=== PATIENT | female | born 1995 | race African-American/Black ===

== ENCOUNTER 2019-07-05 03:26 | Emergency (ER) | payer SELFPAY ==
[2019-07-05] MEDS ORDERED: SODIUM CHLORIDE 1,000 ML IV STA (03:48)
[2019-07-05] MEDS ORDERED: ACETAMINOPHEN 325 MG TABLET (FP) PO ONE (03:48)
[2019-07-05 03:54] VITALS: TEMP 97.9; BMI 20.3
--- NOTE | 2019-07-05 03:54 | PDOC ---
History of Present Illness - General Chief Complaint: Vaginal Bleeding Stated Complaint: vaginal bleeding Time Seen by Provider: 07/05/19 03:48 History Source: Patient Exam Limitations: No Limitations - History of Present Illness Initial Comments: Юлия Ferrera is a healthy 23 yo F who denies having any pmh who presents to the [facility] er after she experienced a few episodes of vaginal bleeding this week. She states she took a home test last week which was poisitive, did not goto a doctor, then experienced multiple bleeding episodes and assumed she miscarried. She States she took another home test recently which was negative so she does not think she is now . She states the reason she is here is because her mother told her positive tests and bleeding could be really bad and she should come to the ER to be evaluated. She states this would be her 3rd and the first two ended with elective abortions. She states a few days ago she passed multiple clots of blood vaginally. She has no pain or complaints here today, she only presents for re- assurance that everything is okay. She denies having any abdominal pain, back pain, nausea, vomiting, or fevers. Denies chest pain, SOB, or difficulty breathing. Denies headache, blurry vision or neck pain. LMP: Thanksgiving PCP: None OB: None PSH: None reported Allergies: NKA, NKDA Social Hx: Smokes marijuana, occasional cigarettes, recreational alcohol. Past History - Past Medical History Allergies/Adverse Reactions: Allergies Allergy/AdvReac Type Severity Reaction Status Date / Time No Known Allergies Allergy Verified 07/05/19 04:14 - Psycho Social/Smoking Cessation Hx Smoking History: Never smoked Have you smoked in the past 12 months: No Information on smoking cessation initiated: No Hx Alcohol Use: No Drug/Substance Use Hx: No Review of Systems - Review of Systems Able to Perform ROS?: Yes Comments:: CONSTITUTIONAL: Absent: fever, no chills, no fatigue EYES: Absent: visual changes ENT: Absent: ear pain, no sore throat CARDIOVASCULAR: Absent: chest pain, no palpitations RESPIRATORY: Absent: cough, no SOB GI: Absent: abdominal pain, no nausea, no vomiting, no constipation, no diarrhea GENITOURINARY: Present: vagival bleeding Absent: dysuria, no frequency, no hematuria MUSKULOSKELETAL: Absent: back pain, no arthralgia, no myalgia SKIN: Absent: rash NEURO: Absent: headache *Physical Exam - Vital Signs Last Vital Signs Temp Pulse Resp BP Pulse Ox 97.9 F 84 15 135/78 100 07/05/19 03:50 07/05/19 03:50 07/05/19 03:50 07/05/19 03:50 07/05/19 03:50 - Physical Exam GENERAL: Well-appearing, well-nourished. No apparent distress. HEENT: Normocephalic, atraumatic. PERRL, EOM intact. CARDIOVASCULAR: Normal S1, S2. Regular rate and rhythm. PULMONARY: No evidence of respiratory distress. Lungs clear to auscultation bilaterally. No wheezing, rales or rhonchi. ABDOMEN: Soft, non-distended, non-tender. EXTREMITIES: Normal ROM in all four extremities. No gross deformities. SKIN: Warm, dry. No rash NEUROLOGICAL: No focal neurological deficits. ED Treatment Course - LABORATORY CBC & Chemistry Diagram: 07/05/19 04:00 07/05/19 04:00 Medical Decision Making - Medical Decision Making Юлия Ferrera is a healthy 23 yo F who denies having any pmh who presents to the [facility] er after she experienced a few episodes of vaginal bleeding this week. She states she took a home test last week which was poisitive, did not goto a doctor, then experienced multiple bleeding episodes and assumed she miscarried. She States she took another home test recently which was negative so she does not think she is now . She states the reason she is here is because her mother told her positive tests and bleeding could be really bad and she should come to the ER to be evaluated. She states this would be her 3rd and the first two ended with elective abortions. She states a few days ago she passed multiple clots of blood vaginally. She has no pain or complaints here today, she only presents for re- assurance that everything is okay. Vital Signs Temp Pulse Resp BP Pulse Ox 97.9 F 84 15 135/78 100 07/05/19 03:50 07/05/19 03:50 07/05/19 03:50 07/05/19 03:50 07/05/19 03:50 DDx IBNLT: - IUP vs Ectopic, electrolyte/metabolic disturbance, anemia , RH+ Plan: Labs, Urine, supportive care, re-assess. Labs: Unremarkable. O positive - Ab negative. Urine: HCG negative Re-assessment: Patient pain free Disposition: Home with OB fu - Return precautions Discharge - Discharge Information Problems reviewed: Yes Clinical Impression/Diagnosis: Vaginal bleeding Condition: Improved Disposition: HOME - Admission No - Follow up/Referral Referrals: Alex Coulter MD [Staff Physician] - - Patient Discharge Instructions Patient Printed Discharge Instructions: DI for Vaginal Bleeding, Teens and Oral Sex: It's Not Safe, Facts About Sexually Transmitted Infections, How to Detect and Treat STDs, Chlamydia: The Silent STD, An STD Now Can Result in Infertility Later Additional Instructions: Please schedule a follow up appointment with your primary care doctor in the next 3 to 5 days Please schedule a follow up appointment with your OB in the next 5 days Come back to the ER immediately with any new or worsening concerns including abdominal pain, vaginal bleeding, or other concerns. Thank you for coming to the [facility] ER. We hope you feel better soon! Print Language: TURKMEN - Post Discharge Activity
[2019-07-05] MEDS ORDERED: ONDANSETRON 4 MG/2 ML VIAL IVPUSH ONE (04:11)
[2019-07-05 04:13] LABS: EPI CELLS 3.5 /HPF (0-5/HPF); HYALINE CASTS 3 /lpf (0-8); URINE APPEARANCE CLEAR; URINE BACTERIA 65.9 /hpf (NEGATIVE); URINE BILIRUBIN NEGATIVE (NEGATIVE); URINE COLOR YELLOW; URINE GLUCOSE (UA) NEGATIVE (NEGATIVE); URINE KETONE TRACE (NEGATIVE); URINE LEUK ESTERASE TRACE (NEGATIVE); URINE NITRITE NEGATIVE (NEGATIVE); URINE PROTEIN NEGATIVE (NEGATIVE); URINE RBC 1 /hpf (0-4); URINE UROBILINOGEN 0.2 mg/dL (0.2-1.0); URINE WBC 7 /hpf (0-5)
[2019-07-05 04:22] LABS: BASO % 0.7 % (0-2.0); EOS % 5.3 % (0-4.5); HEMATOCRIT 43.6 % (32.4-45.2); HEMOGLOBIN 14.8 GM/dL (10.7-15.3); LYMPH % 45.4 % (8-40); MCH 30.2 pg (25.7-33.7); MCHC 33.9 g/dl (32.0-36.0); MEAN CELL VOLUME 89.2 fl (80-96); MEAN PLT VOLUME 9.3 fl (7.5-11.1); MONO % 5.9 % (3.8-10.2); NEUT % 42.7 % (42.8-82.8); PLATELET COUNT 289 K/MM3 (134-434); RBC 4.88 M/mm3 (3.60-5.2); RDW 12.6 % (11.6-15.6); WHITE BLOOD COUNT 9.1 K/mm3 (4.0-10.0)
[2019-07-05 05:01] LABS: ALK PHOS 74 U/L (45-117); ANION GAP 7 MMOL/L (8-16); BILIRUBIN,TOTAL 0.5 mg/dL (0.2-1); BLOOD UREA NITROGEN 10.8 mg/dL (7-18); CHLORIDE 104 mmol/L (98-107); CO2 26 mmol/L (21-32); CREATININE 0.8 mg/dL (0.55-1.3); GLUCOSE,RANDOM 100 mg/dL (74-106); POTASSIUM 5.3 mmol/L (3.5-5.1); SGOT/AST 43 U/L (15-37); SGPT/ALT 28 U/L (13-61); SODIUM 138 mmol/L (136-145); TOT PROT 7.9 g/dl (6.4-8.2)
--- NOTE | 2019-07-05 05:20 | PDOC ---
Attending Attestation - Resident Resident Name: Ed Carballo - ED Attending Attestation I have performed the following: I have examined & evaluated the patient, The case was reviewed & discussed with the resident, I agree w/resident's findings & plan, Exceptions are as noted - HPI HPI: 07/18/19 20:04 See resident HPI - Physicial Exam PE: 07/18/19 20:04 Agree with documented exam - Medical Decision Making 07/18/19 20:04 Vaginal bleeding with report of recent + test, states latest home test was negative after bleeding started. Reports clots Eval for IUP, ectopic, SAB f/u labs, urine HCG neg, Rh+ dc home
[2019-07-05 05:41] VITALS: BP 122/76; PULSE 78
== END 2019-07-05 05:41 | disposition home or self-care (01) ==
LOC: JER 03:26
PROC: 3E0337Z Introduction of Electrolytic and Water Balance Substance into Peripheral Vein, Percutaneous Approach (ICD-10-PCS; principal; 2019-07-05)
DX: N93.8 Other specified abnormal uterine and vaginal bleeding (principal)
CPT/HCPCS: 36415; 80053; 81003; 84702; 84703; 85025; 86850; 86900; 86901; 87086; 87186; 99283-25; J7030